=== PATIENT | male | born 2000 | race Caucasian/White ===

== ENCOUNTER 2022-08-22 14:51 | Emergency (ER) | payer OTHER ==
[2022-08-22] MEDS ORDERED: IBUPROFEN 800 MG TABLET PO STA (15:29)
[2022-08-22] MEDS ORDERED: BACITRACIN ZINC OINT 1 PACKET TOP STA (15:29)
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
[2022-08-22 16:51] VITALS: BP 145/59
== END 2022-08-22 16:45 | disposition home or self-care (01) ==
LOC: ED 14:51
DX: S20.221A Contusion of right back wall of thorax, initial encounter (principal); S80.211A Abrasion, right knee, initial encounter; S30.810A Abrasion of lower back and pelvis, initial encounter; V18.4XXA Pedal cycle driver injured in noncollision transport accident in traffic accident, initial encounter; Y93.55 Activity, bike riding
CPT/HCPCS: 72100; 73502; 99283; 99284; A9270